=== PATIENT | female | born 1950 | race Caucasian/White ===

== ENCOUNTER 2021-09-09 06:29 | Day surgery (SDC) | payer MEDICARE, BC ==
[2021-09-09] MEDS ORDERED: Propofol 200 MG/20 ML SDV ONE (07:34)
[2021-09-09] MEDS ORDERED: Midazolam 1 MG/ML 2 ML SDV ONE (07:34)
[2021-09-09] MEDS ORDERED: fentaNYL 100 MCG/2 ML SDV ONE (07:34)
[2021-09-09] MEDS: Sodium Chloride 0.9% 1,000 ML IV SCH (09:19)
[2021-09-09 09:22] VITALS: BP 152/75; PULSE 46
--- NOTE | 2021-09-09 10:28 | OR ---
DATE OF PROCEDURE: 09/09/2021 SURGEON: Chad Romo MD PREOPERATIVE DIAGNOSIS: Screening colonoscopy. POSTOPERATIVE DIAGNOSIS: Screening colonoscopy. PROCEDURE: Colonoscopy. FINDINGS: 1. Descending colon polyp was approximately 5 mm, completely removed using cold biopsy forceps. 2. Transverse colon polyp, approximately 8 mm, completely removed using hot snare wire device. 3. Sigmoid colon polyp, approximately 5 mm, completely removed using cold biopsy forceps. COMPLICATION: None. STOCK ASSOCIATE: None. ANESTHETIC: MAC. RISKS: Risks, benefits, alternatives, and limitations including, but not limited to, infection; bleeding; perforation; other risks not listed here were explained to the patient who wished to proceed. PROCEDURE IN DETAIL: The patient was placed in left lateral decubitus position. Digital rectal exam was performed without abnormality. Scope was introduced and advanced atraumatically to the ileocecal valve. A photo was taken. The scope was brought back to the ascending, transverse, descending colon, and retroflexed. No evidence of old or new blood. No masses. The patient did have diverticula, which were described as very mild, limited to the sigmoid colon. No abnormalities on retroflexion. Greater than 8 minutes was spent on removal of the scope. The prep was acceptable. Approximately 90% of the luminal surface could be seen. The patient tolerated procedure well. Chad Romo MD /[id number]
== END 2021-09-09 09:30 | disposition home or self-care (01) ==
LOC: JP.SDS 06:29
PROVIDERS: ATTEND Surgery
DX: Z12.11 Encounter for screening for malignant neoplasm of colon (principal); D12.3 Benign neoplasm of transverse colon; D12.4 Benign neoplasm of descending colon; D12.5 Benign neoplasm of sigmoid colon; K57.30 Diverticulosis of large intestine without perforation or abscess without bleeding; I10 Essential (primary) hypertension
CPT/HCPCS: J2250; J2704; J3010; J7030

== ENCOUNTER 2022-04-24 11:23 | Emergency (ER) | payer MEDICARE, BC ==
[2022-04-24 12:25] LABS: ESTIMATED GFR 78 mL/min (>60)
[2022-04-24 13:12] VITALS: BP 155/64; PULSE 58
[2022-04-24] MEDS ORDERED: Iopamidol 612 MG/ML 500 ML Multipack Bottle IV ONE (13:32)
[2022-04-24] MEDS ORDERED: Sodium Chloride 0.9% 75 ML IV SCH (13:45)
[2022-04-24] MEDS ORDERED: Clopidogrel 75 MG Tab PO ONE (14:50)
== END 2022-04-24 15:09 | disposition home or self-care (01) ==
LOC: JP.ED 11:23
DX: R42 Dizziness and giddiness (principal); R51.9 Headache, unspecified; M54.2 Cervicalgia; I10 Essential (primary) hypertension; Z79.82 Long term (current) use of aspirin; Z79.899 Other long term (current) drug therapy
CPT/HCPCS: 36415; 70450; 70496; 70498; 80053; 85025; 99284; A9270; 99283